=== PATIENT | female | born 1990 | race Caucasian/White ===

== ENCOUNTER 2023-03-25 13:01 | Emergency (ER) | payer MEDICAID ==
[~2023-03-25] VITALS: Ht 177.8 cm; Wt 117.9 kg
[2023-03-25 13:01] VITALS: BP_SYST 148; PULSE 88; RESP 18; TEMP 97.5; O2SAT 97
--- NOTE | 2023-03-25 13:01 | NUR ---
BROUGHT IN BY [facility] AND PLACED IN BED #6, TRIAGED. REPORT GIVEN TO RUPESH
--- NOTE | 2023-03-25 13:10 | NUR ---
DR MIRANDA TO BEDSIDE FOR EVALUATION
--- NOTE | 2023-03-25 13:21 | NUR ---
ASSISTED UP TO RESTROOM WITH STEADY GAIT.
[2023-03-25] MEDS ORDERED: MORPHINE 4 MG INJ. 4 MG/ML VIAL IM ONE (13:30)
--- NOTE | 2023-03-25 14:22 | NUR ---
Patient has received labs, radiology tests and has recieved pain medicine. Patient states she is feeling improved at this time.
--- NOTE | 2023-03-25 14:36 | NUR ---
Gave patient another cold pack and a lunch box.
[2023-03-25] MEDS ORDERED: HYDR-3927 PO (15:01)
[2023-03-25] MEDS ORDERED: IBUP-1971 PO (15:01)
--- NOTE | 2023-03-25 15:42 | NUR ---
Patient given written and verbal discharge instructions and verbalizes understanding. ER MD discussed with patient the results and treatment provided. Patient in stable condition. ID arm band removed. IV catheter removed intact and dressing applied, no active bleeding. Rx of morphine given. Patient educated on pain management and to follow up with PMD. Pain Scale 3/10. Opportunity for questions provided and answered. Medication side effect fact sheet provided.
== END 2023-03-25 15:42 | disposition home or self-care (01) ==
LOC: SED 13:01
DX: S42.122A Displaced fracture of acromial process, left shoulder, initial encounter for closed fracture (principal); Z79.899 Other long term (current) drug therapy; W09.8XXA Fall on or from other playground equipment, initial encounter; Y93.89 Activity, other specified; Y92.89 Other specified places as the place of occurrence of the external cause; Y99.8 Other external cause status
CPT/HCPCS: 99284; 73030; 73070; 73100; 96372; J2270